=== PATIENT | male | born 1970 | race Two or more races ===

== ENCOUNTER 2016-09-23 16:56 | Inpatient (IN) | payer OTHER ==
[2016-09-23] MEDS ORDERED: Ketorolac 30 MG/ML SDV IVPUSH ONE (17:08)
[2016-09-23] MEDS ORDERED: Famotidine 20 MG/2 ML SDV IVPUSH ONE (17:08)
[2016-09-23] MEDS ORDERED: Aspirin 81 MG Tab.Chew PO ONE (17:08)
[2016-09-23] MEDS ORDERED: Sodium Chloride 0.9% 10 ML Syringe FLUSH PRN (17:08)
[2016-09-23] MEDS ORDERED: Sodium Chloride 0.9% 2.5 ML Syringe FLUSH PRN (17:08)
[2016-09-23] MEDS ORDERED: Alum Hydrox/Mag Hydrox/Simeth 15 ML, Metoclopramide 5 MG, Lidocaine 2% 5 ML PO ONE ×3 (17:08)
--- NOTE | 2016-09-23 17:25 | EDM.PDOC ---
ED HPI GENERAL MEDICAL PROBLEM - General Chief Complaint: Chest Pain Stated Complaint: CHEST PAIN/DIZZY Time Seen by Provider: 09/23/16 17:05 Source of Information: Reports: Patient History Limitations: Reports: No Limitations - History of Present Illness INITIAL COMMENTS - FREE TEXT/NARRATIVE: History of present illness: 46-year-old male presenting with complaints of chest pressure, pain and burning. Patient indicates this has come and gone for the last few days when someone at his work instructed it was important that he have it evaluated. Review of systems: As per history of present illness and below otherwise all systems reviewed and negative. Past medical history: As per history of present illness and as reviewed below otherwise noncontributory. Surgical history: As per history of present illness and as reviewed below otherwise noncontributory. Social history: No reported history of drug or alcohol abuse. Family history: As per history of present illness and as reviewed below otherwise noncontributory. Physical exam: HEENT: Atraumatic, normocephalic, pupils reactive, negative for conjunctival pallor or scleral icterus, mucous membranes moist, throat clear, neck supple, nontender, trachea midline. Lungs: Clear to auscultation, breath sounds equal bilaterally, chest nontender. Heart: S1S2, regular, negative for clicks, rubs, or JVD. Abdomen: Soft, nondistended, upper epigastric tenderness. Negative for masses or hepatosplenomegaly. Negative for costovertebral tenderness. Pelvis: Stable nontender. Genitourinary: Deferred. Rectal: Deferred. Extremities: Atraumatic, negative for cords or calf pain. Neurovascular unremarkable. Neuro: Awake, alert, oriented. Cranial nerves II through XII unremarkable. Cerebellum unremarkable. Motor and sensory unremarkable throughout. Exam nonfocal. CT of abdomen and pelvis negative Diagnostics: [CBC, CMP, troponin, EKG, chest x-ray, CT abdomen and pelvis] Therapeutics: [IV fluid, Zofran, aspirin, check cocktail, Toradol, Dilaudid] Impression: [Pancreatitis] Plan: [Admit] Definitive disposition and diagnosis as appropriate pending reevaluation and review of above. Right Chest Pain Score (Numeric/FACES): 1 - Related Data Allergies Allergy/AdvReac Type Severity Reaction Status Date / Time No Known Allergies Allergy Verified 09/23/16 17:08 Home Meds: Home Meds . [No Known Home Meds] 09/23/16 [History] Past Medical History - Infectious Disease History Infectious Disease History: Reports: Chicken Pox - Past Surgical History GI Surgical History: Reports: Appendectomy, Cholecystectomy Social & Family History - Family History Family Medical History: Noncontributory - Tobacco Use Smoking Status *Q: Never Smoker - Caffeine Use Caffeine Use: Reports: Coffee Caffeine Use Comment: 2-3 cups/day - Recreational Drug Use Recreational Drug Use: No ED ROS GENERAL - Review of Systems Review Of Systems: See Below (See history of present illness) ED EXAM, GENERAL - Physical Exam Exam: See Below (See history of present illness) Course - Vital Signs Last Recorded V/S: Last Vital Signs Temp 37.3 C 09/23/16 17:08 Pulse 71 09/23/16 20:00 Resp 16 09/23/16 20:00 BP 125/83 09/23/16 20:00 Pulse Ox 97 09/23/16 20:00 - Orders/Labs/Meds Orders: Active Orders 24 hr Category Date Time Status EKG Documentation Completion [RC] STAT Care 09/23/16 17:08 Active Abdomen Pelvis w Cont [CT] Stat Exams 09/23/16 18:37 Taken Chest 1V Frontal [CR] Stat Exams 09/23/16 17:08 Taken TROPONIN I [CHEM] Q6H Lab 09/24/16 02:00 Ordered TROPONIN I [CHEM] Q6H Lab 09/24/16 08:00 Ordered Sodium Chloride 0.9% [Normal Saline] 1,000 ml Med 09/23/16 20:05 Active IV .Bolus Sodium Chloride 0.9% [Normal Saline] 1,000 ml Med 09/23/16 19:59 Ordered IV STAT Sodium Chloride 0.9% [Saline Flush] Med 09/23/16 17:08 Active 10 ml FLUSH ASDIRECTED PRN Sodium Chloride 0.9% [Saline Flush] Med 09/23/16 17:08 Active 2.5 ml FLUSH ASDIRECTED PRN Saline Lock Insert [OM.PC] Stat Oth 09/23/16 17:08 Ordered Medication Orders Sodium Chloride (Normal Saline) 1,000 mls @ 999 mls/hr IV STAT ONE Stop: 09/23/16 20:59 Sodium Chloride (Normal Saline) 1,000 mls @ 1,000 mls/hr IV .Bolus ONE Stop: 09/23/16 21:04 Sodium Chloride (Saline Flush) 10 ml FLUSH ASDIRECTED PRN PRN Reason: Keep Vein Open Last Admin: 09/23/16 17:59 Dose: 10 ml Sodium Chloride (Saline Flush) 2.5 ml FLUSH ASDIRECTED PRN PRN Reason: Keep Vein Open Last Admin: 09/23/16 17:59 Dose: 2.5 ml Labs: Laboratory Tests 09/23/16 09/23/16 09/23/16 Range/Units 17:28 17:28 17:28 WBC 14.96 H (4.0-11.0) K/uL RBC 5.22 (4.50-5.90) M/uL Hgb 16.1 (13.0-17.0) g/dL Hct 48.1 (38.0-50.0) % MCV 92.1 (80.0-98.0) fL MCH 30.8 (27.0-32.0) pg MCHC 33.5 (31.0-37.0) g/dL RDW Std Deviation 41.7 (28.0-62.0) fl RDW Coeff of Hillary 13 (11.0-15.0) % Plt Count 229 (150-400) K/uL MPV 10.00 (7.40-12.00) fL Add Manual Diff YES Neutrophils % (Manual) 70 (48.0-80.0) % Band Neutrophils % 3 % Lymphocytes % (Manual) 17 (16.0-40.0) % Monocytes % (Manual) 10 (0.0-15.0) % Nucleated RBC % 0.0 /100WBC Absolute Seg Neuts 10.5 Band Neutrophils # 0.4 Lymphocytes # (Manual) 2.5 Monocytes # (Manual) 1.5 Nucleated RBCs # 0 K/uL Sodium 140 (136-146) mmol/L Potassium 4.1 (3.5-5.1) mmol/L Chloride 104 (98-110) mmol/L Carbon Dioxide 27 (21-31) mmol/L BUN 21 (6.0-23.0) mg/dL Creatinine 1.2 (0.6-1.5) mg/dL Est Cr Clr Drug Dosing 68.33 mL/min Estimated GFR (MDRD) > 60.0 ml/min Glucose 102 (60-110) mg/dL Calcium 8.7 L (8.8-10.8) mg/dL Total Bilirubin 0.3 (0.1-1.5) mg/dL AST 22 (5-40) IU/L ALT 57 H (8-54) IU/L Alkaline Phosphatase 58 (40-150) Troponin I < 0.10 (0.0-0.29) NG/ML Total Protein 7.0 (6.0-8.0) g/dL Albumin 4.0 (3.5-5.0) g/dL Globulin 3.0 (2.0-3.5) g/dL Albumin/Globulin Ratio 1.3 (1.3-2.8) Amylase 125 H (10-90) U/L Lipase 472 H (7-80) U/L Meds: Medications Generic Name Dose Route Start Last Admin Trade Name Freq PRN Reason Stop Dose Admin Sodium Chloride 1,000 mls @ 999 mls/hr 09/23/16 19:59 Normal Saline IV 09/23/16 20:59 STAT ONE Sodium Chloride 1,000 mls @ 1,000 mls/hr 09/23/16 20:05 Normal Saline IV 09/23/16 21:04 .Bolus ONE Sodium Chloride 10 ml 09/23/16 17:08 09/23/16 17:59 Saline Flush FLUSH 10 ml ASDIRECTED PRN Administration Keep Vein Open Sodium Chloride 2.5 ml 09/23/16 17:08 09/23/16 17:59 Saline Flush FLUSH 2.5 ml ASDIRECTED PRN Administration Keep Vein Open Discontinued Medications Generic Name Dose Route Start Last Admin Trade Name Freq PRN Reason Stop Dose Admin Aspirin 324 mg 09/23/16 17:08 09/23/16 17:57 Aspirin PO 09/23/16 17:09 324 mg ONETIME ONE Administration Al Hydroxide/Mg Hydroxide 15 0 ml 09/23/16 17:08 09/23/16 17:58 ml/ Metoclopramide HCl 5 mg/ PO 09/23/16 17:09 25 each Lidocaine HCl 5 ml ONETIME ONE Administration Famotidine 20 mg 09/23/16 17:08 09/23/16 17:58 Pepcid IVPUSH 09/23/16 17:09 20 mg ONETIME ONE Administration Hydromorphone HCl 2 mg 09/23/16 20:01 Dilaudid IVPUSH 09/23/16 20:02 ONETIME ONE Iopamidol 100 ml 09/23/16 19:44 09/23/16 19:45 Isovue Multipack-370 (76%) IVPUSH 09/23/16 19:45 100 ml ONETIME STA Administration Ketorolac Tromethamine 30 mg 09/23/16 17:08 09/23/16 17:58 Toradol IVPUSH 09/23/16 17:09 30 mg ONETIME ONE Administration Ondansetron HCl 8 mg 09/23/16 19:59 Zofran IVPUSH 09/23/16 20:00 ONETIME ONE Departure - Departure Time of Disposition: 20:09 Disposition: Admitted As Inpatient 68 Condition: Good Clinical Impression: Pancreatitis Referrals: PCP,None [Primary Care Provider] - Forms: ED Department Discharge - My Orders Last 24 Hours: My Active Orders 09/23/16 17:08 EKG Documentation Completion [RC] STAT Chest 1V Frontal [CR] Stat Sodium Chloride 0.9% [Saline Flush] 10 ml FLUSH ASDIRECTED PRN Sodium Chloride 0.9% [Saline Flush] 2.5 ml FLUSH ASDIRECTED PRN Saline Lock Insert [OM.PC] Stat 09/23/16 18:37 Abdomen Pelvis w Cont [CT] Stat 09/23/16 19:59 Sodium Chloride 0.9% [Normal Saline] 1,000 ml IV STAT - Assessment/Plan Last 24 Hours: My Active Orders 09/23/16 17:08 EKG Documentation Completion [RC] STAT Chest 1V Frontal [CR] Stat Sodium Chloride 0.9% [Saline Flush] 10 ml FLUSH ASDIRECTED PRN Sodium Chloride 0.9% [Saline Flush] 2.5 ml FLUSH ASDIRECTED PRN Saline Lock Insert [OM.PC] Stat 09/23/16 18:37 Abdomen Pelvis w Cont [CT] Stat 09/23/16 19:59 Sodium Chloride 0.9% [Normal Saline] 1,000 ml IV STAT
[2016-09-23 18:02] LABS: CHLORIDE,CL 104 mmol/L (98-110); SODIUM,NA 140 mmol/L (136-146)
[2016-09-23] MEDS ORDERED: Iopamidol 755 MG/ML 500 ML Multipack Bottle IVPUSH STA (19:44)
[2016-09-23] MEDS ORDERED: Sodium Chloride 0.9% 1,000 ML IV ONE ×2 (19:59→20:05)
[2016-09-23] MEDS ORDERED: Ondansetron 4 MG/2 ML SDV IVPUSH ONE (19:59)
[2016-09-23] MEDS ORDERED: HYDROmorphone 2 MG/ML Syringe IVPUSH ONE (20:01)
[2016-09-23] MEDS ORDERED: HYDROmorphone 2 MG/ML Syringe IVPUSH PRN (20:09)
[2016-09-23] MEDS ORDERED: Ondansetron 4 MG/2 ML SDV IVPUSH PRN (20:09)
--- NOTE | 2016-09-23 20:29 | PCM.HP ---
H&P History of Present Illness - General Admit Problem/Dx: Admission Diagnosis/Problem Admission Diagnosis/Problem Pancreatitis - History of Present Illness Initial Comments - Free Text/Narative: 46 yo male who presents with several day history of epigastric pain. He denies any nausea or vomiting. He denies any diarrhea, blood in stool, or fevers. He denies any alcohol use. He has had a prior cholecystectomy. He was evaluated in the ED and noted to have an elevated lipase of 472. CT scan of abdomen was unremarkable. Right Chest Pain Score (Numeric/FACES): 1 Abdomen Pain Score (Numeric/FACES): 4 - Related Data Allergies/Adverse Reactions: Allergies Allergy/AdvReac Type Severity Reaction Status Date / Time hydromorphone [From Dilaudid] Allergy Itching Verified 09/24/16 07:28 Home Medications: Home Meds . [No Known Home Meds] 09/23/16 [History] Past Medical History - Infectious Disease History Infectious Disease History: Reports: Chicken Pox - Past Surgical History GI Surgical History: Reports: Appendectomy, Cholecystectomy Social & Family History - Family History Family Medical History: Noncontributory - Tobacco Use Smoking Status *Q: Never Smoker - Caffeine Use Caffeine Use: Reports: Coffee Caffeine Use Comment: 2-3 cups/day - Recreational Drug Use Recreational Drug Use: No H&P Review of Systems - Review of Systems: Review Of Systems: See Below General: Reports: No Symptoms HEENT: Reports: No Symptoms Pulmonary: Reports: No Symptoms Cardiovascular: Reports: No Symptoms Gastrointestinal: Reports: No Symptoms Genitourinary: Reports: No Symptoms Musculoskeletal: Reports: No Symptoms Skin: Reports: No Symptoms Psychiatric: Reports: No Symptoms Neurological: Reports: No Symptoms Hematologic/Lymphatic: Reports: No Symptoms Immunologic: Reports: No Symptoms Exam - Exam Exam: See Below - Vital Signs Vital Signs: Last Vital Signs Temp 37.3 C 09/23/16 17:08 Pulse 71 09/23/16 20:00 Resp 16 09/23/16 20:00 BP 125/83 09/23/16 20:00 Pulse Ox 97 09/23/16 20:00 Weight: 83.915 kg - Exam General: Alert, Oriented, 4 Lungs: Clear to Auscultation, Normal Respiratory Effort Cardiovascular: Regular Rate, Regular Rhythm Abdomen: Normal Bowel Sounds, Soft. No: Tenderness Extremities: Normal Inspection Skin: Warm, Dry, Intact - Patient Data Lab Results Last 24 hrs: Laboratory Results - last 24 hr 09/23/16 09/23/16 09/23/16 Range/Units 17:28 17:28 17:28 WBC 14.96 H (4.0-11.0) K/uL RBC 5.22 (4.50-5.90) M/uL Hgb 16.1 (13.0-17.0) g/dL Hct 48.1 (38.0-50.0) % MCV 92.1 (80.0-98.0) fL MCH 30.8 (27.0-32.0) pg MCHC 33.5 (31.0-37.0) g/dL RDW Std Deviation 41.7 (28.0-62.0) fl RDW Coeff of Hillary 13 (11.0-15.0) % Plt Count 229 (150-400) K/uL MPV 10.00 (7.40-12.00) fL Add Manual Diff YES Neutrophils % (Manual) 70 (48.0-80.0) % Band Neutrophils % 3 % Lymphocytes % (Manual) 17 (16.0-40.0) % Monocytes % (Manual) 10 (0.0-15.0) % Nucleated RBC % 0.0 /100WBC Absolute Seg Neuts 10.5 Band Neutrophils # 0.4 Lymphocytes # (Manual) 2.5 Monocytes # (Manual) 1.5 Nucleated RBCs # 0 K/uL Sodium 140 (136-146) mmol/L Potassium 4.1 (3.5-5.1) mmol/L Chloride 104 (98-110) mmol/L Carbon Dioxide 27 (21-31) mmol/L BUN 21 (6.0-23.0) mg/dL Creatinine 1.2 (0.6-1.5) mg/dL Est Cr Clr Drug Dosing 68.33 mL/min Estimated GFR (MDRD) > 60.0 ml/min Glucose 102 (60-110) mg/dL Calcium 8.7 L (8.8-10.8) mg/dL Total Bilirubin 0.3 (0.1-1.5) mg/dL AST 22 (5-40) IU/L ALT 57 H (8-54) IU/L Alkaline Phosphatase 58 (40-150) Troponin I < 0.10 (0.0-0.29) NG/ML Total Protein 7.0 (6.0-8.0) g/dL Albumin 4.0 (3.5-5.0) g/dL Globulin 3.0 (2.0-3.5) g/dL Albumin/Globulin Ratio 1.3 (1.3-2.8) Amylase 125 H (10-90) U/L Lipase 472 H (7-80) U/L Result Diagrams: 09/24/16 01:40 09/24/16 01:40 *Q Meaningful Use (ADM) - VTE *Q VTE Criteria *Q: - Stroke *Q Stroke Criteria *Q: - AMI *Q AMI Criteria *Q: Problem List Initiated/Reviewed/Updated: Yes Orders Last 24hrs: Active Orders 24 hr Category Date Time Status Patient Status [ADT] Stat ADT 09/23/16 20:10 Active Antiembolic Devices [RC] PER UNIT ROUTINE Care 09/23/16 20:10 Ordered EKG Documentation Completion [RC] STAT Care 09/23/16 17:08 Active Intake and Output [RC] QSHIFT Care 09/23/16 20:09 Ordered Oxygen Therapy [RC] PRN Care 09/23/16 20:09 Ordered Up ad Jaclyn [RC] ASDIRECTED Care 09/23/16 20:09 Ordered VTE/DVT Education [RC] PER UNIT ROUTINE Care 09/23/16 20:09 Ordered Vital Signs [RC] Q4H Care 09/23/16 20:09 Ordered Nothing per Oral Now Diet [DIET] Diet 09/23/16 Breakfast Ordered Abdomen Comp [US] Stat Exams 09/23/16 20:11 Ordered Abdomen Pelvis w Cont [CT] Stat Exams 09/23/16 18:37 Taken Chest 1V Frontal [CR] Stat Exams 09/23/16 17:08 Taken CBC WITH AUTO DIFF [HEME] AM Lab 09/24/16 05:11 Ordered CBC WITH AUTO DIFF [HEME] AM Lab 09/25/16 05:11 Ordered COMPREHENSIVE METABOLIC PN,CMP [CHEM] AM Lab 09/24/16 05:11 Ordered COMPREHENSIVE METABOLIC PN,CMP [CHEM] AM Lab 09/25/16 05:11 Ordered LIPID PANEL [CHEM] Stat Lab 09/23/16 20:11 Ordered TROPONIN I [CHEM] Q6H Lab 09/24/16 02:00 Ordered TROPONIN I [CHEM] Q6H Lab 09/24/16 08:00 Ordered Enoxaparin [Lovenox] Med 09/24/16 09:00 Ordered 40 mg SUBCUT DAILY HYDROmorphone [Dilaudid] Med 09/23/16 20:09 Ordered 1 mg IVPUSH Q2H PRN Ondansetron [Zofran] Med 09/23/16 20:09 Ordered 4 mg IVPUSH Q4H PRN Sodium Chloride 0.9% [Normal Saline] 1,000 ml Med 09/23/16 20:05 Active IV .Bolus Sodium Chloride 0.9% [Normal Saline] 1,000 ml Med 09/23/16 20:15 Ordered IV ASDIRECTED Sodium Chloride 0.9% [Normal Saline] 1,000 ml Med 09/23/16 19:59 Active IV STAT Sodium Chloride 0.9% [Saline Flush] Med 09/23/16 17:08 Active 10 ml FLUSH ASDIRECTED PRN Sodium Chloride 0.9% [Saline Flush] Med 09/23/16 17:08 Active 2.5 ml FLUSH ASDIRECTED PRN Saline Lock Insert [OM.PC] Stat Ot 09/23/16 17:08 Ordered Sequential Compression Device [OM.PC] Per Unit Routine Oth 09/23/16 20:10 Ordered Resuscitation Status Routine Resus Stat 09/23/16 20:09 Ordered Medication Orders Enoxaparin Sodium (Lovenox) 40 mg SUBCUT DAILY MIREILLE Hydromorphone HCl (Dilaudid) 1 mg IVPUSH Q2H PRN PRN Reason: Pain (severe 7-10) Sodium Chloride (Normal Saline) 1,000 mls @ 999 mls/hr IV STAT ONE Stop: 09/23/16 20:59 Last Admin: 09/23/16 20:08 Dose: 999 mls/hr Sodium Chloride (Normal Saline) 1,000 mls @ 1,000 mls/hr IV .Bolus ONE Stop: 09/23/16 21:04 Sodium Chloride (Normal Saline) 1,000 mls @ 200 mls/hr IV ASDIRECTED [place] Ondansetron HCl (Zofran) 4 mg IVPUSH Q4H PRN PRN Reason: Nausea Sodium Chloride (Saline Flush) 10 ml FLUSH ASDIRECTED PRN PRN Reason: Keep Vein Open Last Admin: 09/23/16 17:59 Dose: 10 ml Sodium Chloride (Saline Flush) 2.5 ml FLUSH ASDIRECTED PRN PRN Reason: Keep Vein Open Last Admin: 09/23/16 17:59 Dose: 2.5 ml Assessment/Plan Comment:: 46 yo male admitted for acute pancreatitis. Will treat with bowel rest, pain medications, and IV fluids. Will check abdominal ultrasound.
[2016-09-23] MEDS: Sodium Chloride 0.9% 1,000 ML IV SCH (22:22)
[2016-09-24 02:36] LABS: CHLORIDE,CL 107 mmol/L (98-110); SODIUM,NA 139 mmol/L (136-146)
[2016-09-24] MEDS: Sodium Chloride 0.9% 1,000 ML IV SCH ×5 (03:06→23:46)
[2016-09-24] MEDS: Morphine 2 MG/ML Syringe IVPUSH PRN ×3 (03:29→07:34)
--- NOTE | 2016-09-24 08:41 | PCM.PN ---
- General Info Date of Service: 09/24/16 Admission Dx/Problem (Free Text): Admission Diagnosis/Problem Admission Diagnosis/Problem Pancreatitis Subjective Update: Conitnues to have epigastric and RUQ pain, denies chest pain or N/V no palpitations. Pain is not well controlled with Morphine, needs better control. Functional Status: Reports: ambulating, urinating. Denies: pain controlled - Review of Systems General: Denies: Fever, Weakness, Fatigue Pulmonary: Reports: no symptoms. Denies: shortness of breath, cough, sputum Cardiovascular: Reports: No Symptoms. Denies: Chest Pain, Palpitations Gastrointestinal: Reports: Abdominal pain. Denies: Diarrhea, Nausea, Vomiting Genitourinary: Reports: no symptoms Neurological: Reports: No Symptoms Psychiatric: Reports: no symptoms - Patient Data Vitals - most recent: Last Vital Signs Temp 97.4 F 09/24/16 07:28 Pulse 66 09/24/16 07:28 Resp 16 09/24/16 07:28 BP 129/75 09/24/16 07:28 Pulse Ox 98 09/24/16 07:28 Weight - most recent: 89.8 kg I&O - last 24 hours: Intake & Output 09/23/16 09/24/16 09/24/16 22:59 06:59 14:59 Intake Total 1068 Output Total 300 Balance 768 Lab Results last 24 hrs: Laboratory Results - last 24 hr 09/24/16 09/24/16 09/24/16 Range/Units 01:40 01:40 01:40 WBC 12.42 H (4.0-11.0) K/uL RBC 4.63 (4.50-5.90) M/uL Hgb 14.4 (13.0-17.0) g/dL Hct 43.4 (38.0-50.0) % MCV 93.7 (80.0-98.0) fL MCH 31.1 (27.0-32.0) pg MCHC 33.2 (31.0-37.0) g/dL RDW Std Deviation 40.5 (28.0-62.0) fl RDW Coeff of Hillary 12 (11.0-15.0) % Plt Count 187 (150-400) K/uL MPV 10.10 (7.40-12.00) fL Neut % (Auto) 72.5 (48.0-80.0) % Lymph % (Auto) 18.1 (16.0-40.0) % [place] % (Auto) 9.2 (0.0-15.0) % Eos % (Auto) 0.1 (0.0-7.0) % Baso % (Auto) 0.1 (0.0-1.5) % Neut # (Auto) 9.0 H (1.4-5.7) K/uL Lymph # (Auto) 2.3 (0.6-2.4) K/uL [place] # (Auto) 1.1 H (0.0-0.8) K/uL Eos # (Auto) 0.0 (0.0-0.7) K/uL Baso # (Auto) 0.0 (0.0-0.1) K/uL Sodium 139 (136-146) mmol/L Potassium 4.1 (3.5-5.1) mmol/L Chloride 107 (98-110) mmol/L Carbon Dioxide 25 (21-31) mmol/L BUN 23 (6.0-23.0) mg/dL Creatinine 0.9 (0.6-1.5) mg/dL Est Cr Clr Drug Dosing 91.11 mL/min Estimated GFR (MDRD) > 60.0 ml/min Glucose 117 H (60-110) mg/dL Calcium 7.6 L (8.8-10.8) mg/dL Total Bilirubin 0.8 (0.1-1.5) mg/dL AST 648 H (5-40) IU/L ALT 678 H (8-54) IU/L Alkaline Phosphatase 53 (40-150) Troponin I < 0.10 (0.0-0.29) NG/ML Total Protein 5.3 L (6.0-8.0) g/dL Albumin 3.3 L (3.5-5.0) g/dL Globulin 2.0 (2.0-3.5) g/dL Albumin/Globulin Ratio 1.7 (1.3-2.8) Med Orders - Current: Current Medications Enoxaparin Sodium (Lovenox) 40 mg SUBCUT DAILY MIRE[place] Sodium Chloride (Normal Saline) 1,000 mls @ 200 mls/hr IV ASDIRECTED MIREILLE Last Admin: 09/24/16 03:06 Dose: 200 mls/hr Morphine Sulfate (Morphine) 2 mg IVPUSH Q2H PRN PRN Reason: Pain Last Admin: 09/24/16 07:34 Dose: 2 mg Ondansetron HCl (Zofran) 4 mg IVPUSH Q4H PRN PRN Reason: Nausea Sodium Chloride (Saline Flush) 10 ml FLUSH ASDIRECTED PRN PRN Reason: Keep Vein Open Last Admin: 09/23/16 17:59 Dose: 10 ml Sodium Chloride (Saline Flush) 2.5 ml FLUSH ASDIRECTED PRN PRN Reason: Keep Vein Open Last Admin: 09/23/16 17:59 Dose: 2.5 ml Discontinued Medications Aspirin (Aspirin) 324 mg PO ONETIME ONE Stop: 09/23/16 17:09 Last Admin: 09/23/16 17:57 Dose: 324 mg Al Hydroxide/Mg Hydroxide 15 ml/ Metoclopramide HCl 5 mg/Lidocaine HCl 5 ml 0 ml PO ONETIME ONE Stop: 09/23/16 17:09 Last Admin: 09/23/16 17:58 Dose: 25 each Famotidine (Pepcid) 20 mg IVPUSH ONETIME ONE Stop: 09/23/16 17:09 Last Admin: 09/23/16 17:58 Dose: 20 mg Hydromorphone HCl (Dilaudid) 2 mg IVPUSH ONETIME ONE Stop: 09/23/16 20:02 Last Admin: 09/23/16 20:11 Dose: 2 mg Hydromorphone HCl (Dilaudid) 1 mg IVPUSH Q2H PRN PRN Reason: Pain (severe 7-10) Last Admin: 09/23/16 22:42 Dose: 1 mg Sodium Chloride (Normal Saline) 1,000 mls @ 999 mls/hr IV STAT ONE Stop: 09/23/16 20:59 Last Admin: 09/23/16 20:08 Dose: 999 mls/hr Sodium Chloride (Normal Saline) 1,000 mls @ 1,000 mls/hr IV .Bolus ONE Stop: 09/23/16 21:04 Last Admin: 09/24/16 06:33 Dose: 1,000 mls/hr Iopamidol (Isovue Multipack-370 (76%)) 100 ml IVPUSH ONETIME STA Stop: 09/23/16 19:45 Last Admin: 09/23/16 19:45 Dose: 100 ml Ketorolac Tromethamine (Toradol) 30 mg IVPUSH ONETIME ONE Stop: 09/23/16 17:09 Last Admin: 09/23/16 17:58 Dose: 30 mg Ondansetron HCl (Zofran) 8 mg IVPUSH ONETIME ONE Stop: 09/23/16 20:00 Last Admin: 09/23/16 20:09 Dose: 8 mg - Exam General: alert, oriented, cooperative, no acute distress Neck: supple Lungs: Clear to auscultation, Normal respiratory effort Cardiovascular: Regular Rate, Regular Rhythm Abdomen: bowel sounds present, soft, tenderness (epigastric and RUQ) Extremities: no edema, normal pulses Neurological: no new focal deficit Psy/Mental Status: alert, normal affect, normal mood - Problem List & Annotations (1) Pancreatitis SNOMED Code(s): 57724028 Code(s): K85.90 - ACUTE PANCREATITIS WITHOUT NECROSIS OR INFECTION, UNSP Status: Acute Current Visit: Yes Qualifiers: Chronicity: acute Pancreatitis type: biliary Acute pancreatitis complication: no infection or necrosis Qualified Code(s): K85.10 - Biliary acute pancreatitis without necrosis or infection - Problem List Review Problem List Initiated/Reviewed/Updated: Yes - Plan Plan:: 46 yo male admitted for acute pancreatitis. 1. Acute pancreatitis: Continue bowel rest, pain medications, and IV fluids. abdominal ultrasound pending this am. Will adjust pain meds this am and monitor for better response. VTE prophylaxis: Lovenox Dispo: Pending improvement, 2-3 days.
[2016-09-24] MEDS: Enoxaparin 40 MG/0.4 ML Syringe SUBCUT SCH (08:46)
[2016-09-24] MEDS: Morphine 4 MG/ML Syringe IVPUSH PRN ×5 (09:55→20:41)
--- NOTE | 2016-09-24 17:22 | CR ---
EXAM DATE: 09/23/16 PATIENT'S AGE: 46 Patient: MERYL LYNN Facility: [place], [place] Site . Site : 1970 Study: XRay Chest [id number]/15/[id number] 5:57:09 PM Ordering Physician: Doctor Redd Final Report: HISTORY: Chest pain. Technique: One view portable chest. Comparison: None. Findings: No consolidation. No pleural effusion or pneumothorax. Pulmonary vasculature is within normal limits. Cardiomediastinal silhouette is within normal limits. Impression: No acute findings. Dictated by Harjit Chirinos MD @ Sep 23 2016 6:28PM (Electronic Signature) Report Signed by Proxy. LUIS
--- NOTE | 2016-09-24 17:28 | CT ---
EXAM DATE: 09/23/16 PATIENT'S AGE: 46 Patient: MERYL LYNN Facility: [place], [place] Site . Site : 1970 Study: CT Abdomen/Pelvis [id number]/15/2017 7:12:03 PM Ordering Physician: Doctor Redd Final Report: : INDICATION: Abdominal pain. CT ABDOMEN AND PELVIS WITH CONTRAST TECHNIQUE: Multidetector CT imaging was performed through the abdomen and pelvis following intravenous contrast administration using 100 mL Isovue 370. Coronal and sagittal reconstructions were generated. COMPARISON: None. FINDINGS: Lower chest: Lung bases are clear. Liver: Within normal limits. Gallbladder and bile ducts: Status post cholecystectomy. No biliary dilation identified. Pancreas: Unremarkable. Spleen: Normal. Adrenals: No nodules or masses. Kidneys, ureters, and urinary bladder: No renal masses or hydronephrosis. No bladder mass or definite wall thickening. Gastrointestinal tract: Normal caliber bowel without wall thickening. The appendix is not identified and there are no findings to suggest appendicitis. Vascular structures: Normal for age. Peritoneum: No free air, abscess, or significant free fluid. Lymph nodes: No pathologically enlarged nodes identified. Reproductive organs: No pelvic masses. Bones: Normal for age. IMPRESSION: 1. No acute abnormality identified. No cause for the patient`s symptoms is evident. 2. Status postcholecystectomy. SUSAN ANTONIO MD [employer] Dictated by Yung Antonio MD @ 09/23/2016 7:37:01 PM Dictated by: Yung Antonio MD @ 09/23/2016 19:37:42 (Electronic Signature) Report Signed by Proxy. [facility]
--- NOTE | 2016-09-24 17:54 | US ---
EXAM DATE: 09/23/16 PATIENT'S AGE: 46 Patient: MERYL LYNN Facility: [place], [place] Site . Site : 1970 Study: US Abdomen [id number]/16/2017 9:58:41 AM Ordering Physician: Deng Chiang Final Report: HISTORY: Pancreatitis. FINDINGS: Multiple static images from an abdomen ultrasound were evaluated. Pancreatic head and body are normal. The tail is not well seen due to bowel gas. The abdominal aorta is normal in caliber. The IVC is unremarkable. The right lobe of the liver measures 15.1 cm in length. The liver is homogeneous in echotexture. No intrahepatic ductal dilatation or mass is seen. There is no fluid in Minor`s pouch. The right kidney measures 10.5 cm and is free of hydronephrosis or mass. The common bile duct measures 4 mm. The gallbladder is absent. The spleen measures 11.0 cm. The left kidney measures 12.7 cm and is free of hydronephrosis or mass. IMPRESSION: 1. Pancreatic head and body are normal. The tail is obscured by bowel gas. 2. The gallbladder is absent. The common bile duct is normal at 4 mm. No intrahepatic ductal dilatation is seen. Dictated by Shanna Lopez MD @ 09/24/2016 2:30:47 PM Dictated by: Shanna Lopez MD @ 09/24/2016 14:31:28 (Electronic Signature) Report Signed by Proxy. LUIS
[2016-09-25] MEDS ORDERED: Sodium Chloride 0.65% Nasal Spray 45 ML Bottle NAS PRN (00:08)
[2016-09-25] MEDS: Morphine 4 MG/ML Syringe IVPUSH PRN (01:08)
[2016-09-25] MEDS: Sodium Chloride 0.9% 1,000 ML IV SCH ×3 (04:46→16:29)
[2016-09-25 06:31] LABS: CHLORIDE,CL 106 mmol/L (98-110); SODIUM,NA 142 mmol/L (136-146)
[2016-09-25] MEDS: Enoxaparin 40 MG/0.4 ML Syringe SUBCUT SCH (08:55)
--- NOTE | 2016-09-25 11:37 | PCM.PN ---
- Review of Systems Systems Review Comment:: abdominal pain improving - Patient Data Vitals - most recent: Last Vital Signs Temp 36.9 C 09/25/16 08:00 Pulse 65 09/25/16 08:00 Resp 16 09/25/16 08:00 BP 114/67 09/25/16 08:00 Pulse Ox 94 L 09/25/16 08:00 Weight - most recent: 83.915 kg I&O - last 24 hours: Intake & Output 09/24/16 09/25/16 09/25/16 22:59 06:59 14:59 Intake Total 50 3452 999 Output Total 1775 3500 Balance -1725 -48 999 Lab Results last 24 hrs: Laboratory Results - last 24 hr 09/25/16 09/25/16 Range/Units 05:36 05:36 WBC 7.60 (4.0-11.0) K/uL RBC 4.90 (4.50-5.90) M/uL Hgb 14.9 (13.0-17.0) g/dL Hct 46.1 (38.0-50.0) % MCV 94.1 (80.0-98.0) fL MCH 30.4 (27.0-32.0) pg MCHC 32.3 (31.0-37.0) g/dL RDW Std Deviation 42.8 (28.0-62.0) fl RDW Coeff of Hillary 13 (11.0-15.0) % Plt Count 182 (150-400) K/uL MPV 9.90 (7.40-12.00) fL Neut % (Auto) 66.2 (48.0-80.0) % Lymph % (Auto) 23.4 (16.0-40.0) % [place] % (Auto) 8.9 (0.0-15.0) % Eos % (Auto) 1.4 (0.0-7.0) % Baso % (Auto) 0.1 (0.0-1.5) % Neut # (Auto) 5.0 (1.4-5.7) K/uL Lymph # (Auto) 1.8 (0.6-2.4) K/uL [place] # (Auto) 0.7 (0.0-0.8) K/uL Eos # (Auto) 0.1 (0.0-0.7) K/uL Baso # (Auto) 0.0 (0.0-0.1) K/uL Nucleated RBC % 0.8 /100WBC Nucleated RBCs # 0 K/uL Sodium 142 (136-146) mmol/L Potassium 4.1 (3.5-5.1) mmol/L Chloride 106 (98-110) mmol/L Carbon Dioxide 28 (21-31) mmol/L BUN 11 (6.0-23.0) mg/dL Creatinine 0.9 (0.6-1.5) mg/dL Est Cr Clr Drug Dosing 91.11 mL/min Estimated GFR (MDRD) > 60.0 ml/min Glucose 76 (60-110) mg/dL Calcium 8.1 L (8.8-10.8) mg/dL Total Bilirubin 0.8 (0.1-1.5) mg/dL AST 194 H (5-40) IU/L ALT 824 H (8-54) IU/L Alkaline Phosphatase 89 (40-150) Total Protein 5.9 L (6.0-8.0) g/dL Albumin 3.4 L (3.5-5.0) g/dL Globulin 2.5 (2.0-3.5) g/dL Albumin/Globulin Ratio 1.4 (1.3-2.8) Med Orders - Current: Current Medications Enoxaparin Sodium (Lovenox) 40 mg SUBCUT DAILY [facility] Last Admin: 09/25/16 08:55 Dose: 40 mg Sodium Chloride (Normal Saline) 1,000 mls @ 200 mls/hr IV ASDIRECTED [place] Last Admin: 09/25/16 09:59 Dose: 200 mls/hr Morphine Sulfate (Morphine) 4 mg IVPUSH Q2H PRN PRN Reason: Pain Last Admin: 09/25/16 01:08 Dose: 4 mg Ondansetron HCl (Zofran) 4 mg IVPUSH Q4H PRN PRN Reason: Nausea Last Admin: 09/24/16 19:06 Dose: 4 mg Sodium Chloride (Saline Flush) 10 ml FLUSH ASDIRECTED PRN PRN Reason: Keep Vein Open Last Admin: 09/23/16 17:59 Dose: 10 ml Sodium Chloride (Saline Flush) 2.5 ml FLUSH ASDIRECTED PRN PRN Reason: Keep Vein Open Last Admin: 09/23/16 17:59 Dose: 2.5 ml Sodium Chloride ([place] Nasal [place]) 0 ml RUBI Q4H PRN PRN Reason: Congestion Last Admin: 09/25/16 09:03 Dose: 1 spray Discontinued Medications Aspirin (Aspirin) 324 mg PO ONETIME ONE Stop: 09/23/16 17:09 Last Admin: 09/23/16 17:57 Dose: 324 mg Al Hydroxide/Mg Hydroxide 15 ml/ Metoclopramide HCl 5 mg/Lidocaine HCl 5 ml 0 ml PO ONETIME ONE Stop: 09/23/16 17:09 Last Admin: 09/23/16 17:58 Dose: 25 each Famotidine (Pepcid) 20 mg IVPUSH ONETIME ONE Stop: 09/23/16 17:09 Last Admin: 09/23/16 17:58 Dose: 20 mg Hydromorphone HCl (Dilaudid) 2 mg IVPUSH ONETIME ONE Stop: 09/23/16 20:02 Last Admin: 09/23/16 20:11 Dose: 2 mg Hydromorphone HCl (Dilaudid) 1 mg IVPUSH Q2H PRN PRN Reason: Pain (severe 7-10) Last Admin: 09/23/16 22:42 Dose: 1 mg Sodium Chloride (Normal Saline) 1,000 mls @ 999 mls/hr IV STAT ONE Stop: 09/23/16 20:59 Last Admin: 09/23/16 20:08 Dose: 999 mls/hr Sodium Chloride (Normal Saline) 1,000 mls @ 1,000 mls/hr IV .Bolus ONE Stop: 09/23/16 21:04 Last Admin: 09/24/16 06:33 Dose: 1,000 mls/hr Iopamidol (Isovue Multipack-370 (76%)) 100 ml IVPUSH ONETIME STA Stop: 09/23/16 19:45 Last Admin: 09/23/16 19:45 Dose: 100 ml Ketorolac Tromethamine (Toradol) 30 mg IVPUSH ONETIME ONE Stop: 09/23/16 17:09 Last Admin: 09/23/16 17:58 Dose: 30 mg Morphine Sulfate (Morphine) 2 mg IVPUSH Q2H PRN PRN Reason: Pain Last Admin: 09/24/16 07:34 Dose: 2 mg Ondansetron HCl (Zofran) 8 mg IVPUSH ONETIME ONE Stop: 09/23/16 20:00 Last Admin: 09/23/16 20:09 Dose: 8 mg - Exam General: alert, oriented Neck: supple Lungs: Clear to auscultation, Normal respiratory effort Cardiovascular: Regular Rate, Regular Rhythm Abdomen: bowel sounds present, soft, no tenderness, no distension Skin: warm, dry, intact - Problem List Review Problem List Initiated/Reviewed/Updated: Yes - My Orders Last 24 Hours: My Active Orders 09/25/16 00:08 Sodium Chloride 0.65% [[place] Nasal [place]] See Dose Instructions RUBI Q4H PRN 09/25/16 11:33 HEPATITIS PANEL, ACUTE [REF] Routine IRON,FE [CHEM] Routine IRON/TIBC [CHEM] Routine 09/26/16 05:11 CBC WITH AUTO DIFF [HEME] AM COMPREHENSIVE METABOLIC PN,CMP [CHEM] AM 09/27/16 05:11 CBC WITH AUTO DIFF [HEME] AM COMPREHENSIVE METABOLIC PN,CMP [CHEM] AM 09/28/16 05:11 CBC WITH AUTO DIFF [HEME] AM COMPREHENSIVE METABOLIC PN,CMP [CHEM] AM - Plan Plan:: 46 yo male admitted for acute pancreatitis. Pancreatitis: Improving. will start clear liquid diet. Transaminitis: CT and U/S negative. patient denies alcohol and acetaminaphen use. Will check acute hepatitis panel and iron levels.
[2016-09-26] MEDS: Sodium Chloride 0.9% 1,000 ML IV SCH (00:30)
[2016-09-26 06:51] LABS: CHLORIDE,CL 106 mmol/L (98-110); SODIUM,NA 143 mmol/L (136-146)
[2016-09-26 08:19] VITALS: BP 114/77
--- NOTE | 2016-09-26 08:39 | PCM.DCSUM1 ---
Discharge Summary - Discharge Data Discharge Date: 09/26/16 Discharge Disposition: Home, Self-Care 01 Condition: Good - Patient Summary/Data Hospital Course: Admission diagnosis Acute pancreatitis Transaminitis Hospital course: 46 yo male who presents with several day history of epigastric pain. He was evaluated in the ED and noted to have an elevated lipase of 472. CT scan of abdomen and RUQ ultrasound was unremarkable. He denies any alcohol use. He has had a prior cholecystectomy. Triglyceride levels were normal. He was treated with IV fluids and bowel rest. His abdominal pain improved and he was tolerating an oral diet before discharge. During his hospital stay he did have a rise in his AST to 648 and ALT to 824 which decreased to 57 and 513 at time of discharge. Bilirubin was normal. Acute hepatitis panel was pending at time of discharge. He was discharged home to follow up with Dr. De Jesus on 09/30/16. - Discharge Plan Home Medications: Home Meds . [No Known Home Meds] 09/23/16 [History] Referrals: [place] De Jesus MD [Physician] - 09/30/16 8:30 am - Patient Data Vitals - Most Recent: Last Vital Signs Temp 36.8 C 09/26/16 08:00 Pulse 74 09/26/16 08:00 Resp 14 09/26/16 08:00 BP 114/77 09/26/16 08:00 Pulse Ox 97 09/26/16 08:00 Weight - Most Recent: 83.915 kg I&O - Last 24 hours: Intake & Output 09/25/16 09/26/16 09/26/16 22:59 06:59 14:59 Intake Total 5226 2307 Output Total 2350 2550 Balance 2876 -243 Lab Results - Last 24 hrs: Laboratory Results - last 24 hr 09/25/16 09/26/16 09/26/16 Range/Units 05:36 06:00 06:00 WBC 7.53 (4.0-11.0) K/uL RBC 4.93 (4.50-5.90) M/uL Hgb 15.3 (13.0-17.0) g/dL Hct 45.4 (38.0-50.0) % MCV 92.1 (80.0-98.0) fL MCH 31.0 (27.0-32.0) pg MCHC 33.7 (31.0-37.0) g/dL RDW Std Deviation 41.4 (28.0-62.0) fl RDW Coeff of [place] 12 (11.0-15.0) % Plt Count 187 (150-400) K/uL MPV 9.70 (7.40-12.00) fL Neut % (Auto) 56.4 (48.0-80.0) % Lymph % (Auto) 31.9 (16.0-40.0) % [place] % (Auto) 8.9 (0.0-15.0) % Eos % (Auto) 2.7 (0.0-7.0) % Baso % (Auto) 0.1 (0.0-1.5) % Neut # (Auto) 4.3 (1.4-5.7) K/uL Lymph # (Auto) 2.4 (0.6-2.4) K/uL [place] # (Auto) 0.7 (0.0-0.8) K/uL Eos # (Auto) 0.2 (0.0-0.7) K/uL Baso # (Auto) 0.0 (0.0-0.1) K/uL Nucleated RBC % 0.0 /100WBC Nucleated RBCs # 0 K/uL Sodium 143 (136-146) mmol/L Potassium 4.1 (3.5-5.1) mmol/L Chloride 106 (98-110) mmol/L Carbon Dioxide 30 (21-31) mmol/L BUN 8 (6.0-23.0) mg/dL Creatinine 0.9 (0.6-1.5) mg/dL Est Cr Clr Drug Dosing 91.11 mL/min Estimated GFR (MDRD) > 60.0 ml/min Glucose 96 (60-110) mg/dL Calcium 8.2 L (8.8-10.8) mg/dL Iron 110 (50-170) ug/dL TIBC 236 L (273-456) ug/dL % Saturation 46.61 (20-55) % Total Bilirubin 0.8 (0.1-1.5) mg/dL AST 57 H (5-40) IU/L ALT 513 H (8-54) IU/L Alkaline Phosphatase 80 (40-150) Total Protein 5.7 L (6.0-8.0) g/dL Albumin 3.3 L (3.5-5.0) g/dL Globulin 2.4 (2.0-3.5) g/dL Albumin/Globulin Ratio 1.4 (1.3-2.8) Med Orders - Current: Current Medications Enoxaparin Sodium (Lovenox) 40 mg SUBCUT DAILY [facility] Last Admin: 09/25/16 08:55 Dose: 40 mg Sodium Chloride (Normal Saline) 1,000 mls @ 125 mls/hr IV ASDIRECTED [place] Last Admin: 09/26/16 00:30 Dose: 200 mls/hr Morphine Sulfate (Morphine) 4 mg IVPUSH Q2H PRN PRN Reason: Pain Last Admin: 09/25/16 01:08 Dose: 4 mg Ondansetron HCl (Zofran) 4 mg IVPUSH Q4H PRN PRN Reason: Nausea Last Admin: 09/24/16 19:06 Dose: 4 mg Sodium Chloride (Saline Flush) 10 ml FLUSH ASDIRECTED PRN PRN Reason: Keep Vein Open Last Admin: 09/23/16 17:59 Dose: 10 ml Sodium Chloride (Saline Flush) 2.5 ml FLUSH ASDIRECTED PRN PRN Reason: Keep Vein Open Last Admin: 09/23/16 17:59 Dose: 2.5 ml Sodium Chloride ([place] Nasal [place]) 0 ml URBI Q4H PRN PRN Reason: Congestion Last Admin: 09/25/16 09:03 Dose: 1 spray Discontinued Medications Aspirin (Aspirin) 324 mg PO ONETIME ONE Stop: 09/23/16 17:09 Last Admin: 09/23/16 17:57 Dose: 324 mg Al Hydroxide/Mg Hydroxide 15 ml/ Metoclopramide HCl 5 mg/Lidocaine HCl 5 ml 0 ml PO ONETIME ONE Stop: 09/23/16 17:09 Last Admin: 09/23/16 17:58 Dose: 25 each Famotidine (Pepcid) 20 mg IVPUSH ONETIME ONE Stop: 09/23/16 17:09 Last Admin: 09/23/16 17:58 Dose: 20 mg Hydromorphone HCl (Dilaudid) 2 mg IVPUSH ONETIME ONE Stop: 09/23/16 20:02 Last Admin: 09/23/16 20:11 Dose: 2 mg Hydromorphone HCl (Dilaudid) 1 mg IVPUSH Q2H PRN PRN Reason: Pain (severe 7-10) Last Admin: 09/23/16 22:42 Dose: 1 mg Sodium Chloride (Normal Saline) 1,000 mls @ 999 mls/hr IV STAT ONE Stop: 09/23/16 20:59 Last Admin: 09/23/16 20:08 Dose: 999 mls/hr Sodium Chloride (Normal Saline) 1,000 mls @ 1,000 mls/hr IV .Bolus ONE Stop: 09/23/16 21:04 Last Admin: 09/24/16 06:33 Dose: 1,000 mls/hr Iopamidol (Isovue Multipack-370 (76%)) 100 ml IVPUSH ONETIME STA Stop: 09/23/16 19:45 Last Admin: 09/23/16 19:45 Dose: 100 ml Ketorolac Tromethamine (Toradol) 30 mg IVPUSH ONETIME ONE Stop: 09/23/16 17:09 Last Admin: 09/23/16 17:58 Dose: 30 mg Morphine Sulfate (Morphine) 2 mg IVPUSH Q2H PRN PRN Reason: Pain Last Admin: 09/24/16 07:34 Dose: 2 mg Ondansetron HCl (Zofran) 8 mg IVPUSH ONETIME ONE Stop: 09/23/16 20:00 Last Admin: 09/23/16 20:09 Dose: 8 mg *Q Meaningful Use (DIS) - VTE *Q VTE Criteria *Q: - Stroke *Q Stroke Criteria *Q: - AMI *Q AMI Criteria *Q:
[2016-09-26] MEDS: Enoxaparin 40 MG/0.4 ML Syringe SUBCUT SCH (09:07)
== END 2016-09-26 09:06 | disposition home or self-care (01) | DRG 440 ==
LOC: MW.ED 16:56 → MW.MS 20:22
PROVIDERS: ADMIT Internal Medicine; ATTEND Internal Medicine
DX: K85.90 Acute pancreatitis without necrosis or infection, unspecified (principal); Z88.8 Allergy status to other drugs, medicaments and biological substances
CPT/HCPCS: 36415; 71010; 71010-26; 74177; 74177-26; 76700; 76700-26; 80053; 80061; 80074; 82150; 83550; 83690; 84484; 85025; 93005; 96374; 96375; 99285; 99285-25; A9270-GY; J1170; J1650; J1885; J2270; J2405; J7040; Q9967